=== PATIENT | female | born 1995 | race Caucasian/White ===

== ENCOUNTER 2022-10-28 04:40 | Inpatient (IN) | payer OTHER ==
[~2022-10-28] VITALS: Ht 165.1 cm; Wt 99.8 kg
[2022-10-28 05:30] VITALS: BP 122/68
[2022-10-28] MEDS ORDERED: OXYTOCIN 10 UNITS/ML VIAL IM SCH (07:45)
[2022-10-28] MEDS ORDERED: METHYLERGONOVINE 0.2 MG/ML AMP IM PRN (07:45)
[2022-10-28] MEDS ORDERED: LACTATED RINGERS 500 ML IV ONE (07:45)
[2022-10-28] MEDS ORDERED: CARBOPROST 250 MCG/ML AMP IM PRN (07:45)
[2022-10-28] MEDS ORDERED: MISOPROSTOL 25 MCG TAB VG SCH (09:00)
[2022-10-28 09:19] LABS: BASOPHILS % (AUTO) 0.3 % (0.0-2.0); EOSINOPHILS % (AUTO) 0.4 % (0.0-4.0); HEMATOCRIT 36.1 % (36-48); HEMOGLOBIN 12.4 g/dL (12.0-16.0); LYMPHOCYTES % (AUTO) 18.9 % (20.5-51.1); MEAN CORPUSCULAR HEMOGLOBIN 31 pg (27-31); MEAN CORPUSCULAR HGB CONC 35 g/dL (33-37); MEAN CORPUSCULAR VOLUME 90.2 fL (80-94); MONOCYTES # (AUTO) 0.6 K/uL (0.8-1.0); MONOCYTES % (AUTO) 5.4 % (1.7-9.3); NEUTROPHILS # (AUTO) 7.9 K/uL (1.8-7.7); PLATELET COUNT (AUTO) 142 K/uL (140-450); RED CELL DISTRIBUTION WIDTH 14.9 % (11.6-13.7); WHITE BLOOD COUNT (AUTO) 10.5 K/uL (4.8-10.8)
[2022-10-28 09:21] LABS: PROTHROMBIN TIME 9.3 secs (10.8-13.4)
--- NOTE | 2022-10-28 09:21 | NUR ---
PATIENT HAS BEEN SCREENED AND CATEGORIZED LOW NUTRITION RISK. PATIENT WILL BE SEEN WITHIN 7 DAYS OF ADMISSION. 11/04/22 REVIEWED BY [address]
[2022-10-28 09:24] LABS: ALBUMIN 3.4 g/dL (3.4-5.0); ANION GAP 14.1 (8-16); CARBON DIOXIDE 22.9 mmol/L (21-32); CREATININE 0.6 mg/dL (0.6-1.3); TOTAL BILIRUBIN 0.2 mg/dL (0.0-1.0)
[2022-10-28 10:31] LABS: APPEARANCE,URINE CLEAR (CLEAR); BILIRUBIN,URINE NEGATIVE (NEGATIVE); BLOOD, URINE 2+ (NEGATIVE); COLOR,URINE YELLOW (YELLOW); LEUKOCYTE ESTERASE ,URINE NEGATIVE (NEGATIVE); NITRITE, URINE NEGATIVE (NEGATIVE); UGLUCOSE NEGATIVE (NEGATIVE)
[2022-10-28 10:34] LABS: URINE AMORPHOUS URATE 1+ /HPF (None Seen)
[2022-10-28 10:35] LABS: RBC,URINE 0-5 /HPF (0-5); WBC,URINE 0-5 /HPF (0-5)
[2022-10-28] MEDS ORDERED: ONDANSETRON 4 MG/2 ML VIAL IVP PRN (13:20)
[2022-10-28] MEDS ORDERED: MORPHINE SULFATE 10 MG/ML VIAL IVP PRN (13:25)
[2022-10-28 13:34] VITALS: BP 126/63
[2022-10-28] MEDS: LACTATED RINGERS 1,000 ML IV SCH ×4 (15:15→20:57)
[2022-10-28] MEDS ORDERED: ROPIVACAINE 0.2%/NS PREMIX 200 ML EPI ONE (16:53)
[2022-10-28] MEDS ORDERED: OXYTOCIN 20 UNITS in LACTATED RINGERS 1,000 ML IV SCH (17:50)
[2022-10-28] MEDS ORDERED: ROPIVACAINE 0.2%/NS PREMIX 200 ML EPI SCH (17:55)
[2022-10-28] MEDS ORDERED: OXYTOCIN 20 UNITS/LR PREMIX 1,000 ML IV ONE (20:23)
[2022-10-29] MEDS ORDERED: IBUPROFEN 800 MG TAB PO PRN (02:05)
[2022-10-29] MEDS ORDERED: METHYLERGONOVINE 0.2 MG TAB PO PRN (02:05)
[2022-10-29] MEDS ORDERED: OXYTOCIN 10 UNITS/ML VIAL IM PRN (02:05)
[2022-10-29] MEDS ORDERED: BENZOCAINE/MENTHOL 20%-0.5% 60 GM CAN TP PRN (02:05)
[2022-10-29] MEDS ORDERED: METHYLERGONOVINE 0.2 MG/ML AMP IM PRN (02:05)
[2022-10-29 08:36] LABS: HEMATOCRIT 30.4 % (36-48); HEMOGLOBIN 10.5 g/dL (12.0-16.0)
== END 2022-10-30 16:30 | disposition home or self-care (01) | DRG 560 ==
LOC: MLD 04:40 → OBSVTOIN 07:57 → MFCC 10-29 02:16
PROVIDERS: ADMIT Obstetrics & Gynecology; ATTEND Obstetrics & Gynecology
PROC: 10E0XZZ Delivery of Products of Conception, External Approach (ICD-10-PCS; principal; 2022-10-28)
PROC: 3E0R3BZ Introduction of Anesthetic Agent into Spinal Canal, Percutaneous Approach (ICD-10-PCS; 2022-10-28)
PROC: 00HU33Z Insertion of Infusion Device into Spinal Canal, Percutaneous Approach (ICD-10-PCS; 2022-10-28)
DX: O77.0 Labor and delivery complicated by meconium in amniotic fluid (principal); Z37.0 Single live birth; D64.9 Anemia, unspecified; O90.81 Anemia of the puerperium; Z20.822 Contact with and (suspected) exposure to COVID-19; Z3A.39 39 weeks gestation of pregnancy
CPT/HCPCS: 36415; 51702; 59200; 59409; 76815; 80053; 81001; 85018; 85025; 85610; 85730; 86592; 86886; 86900; 86901; 87086; J2270; J2405; J2590; J2795; Q0092